=== PATIENT | male | born 1980 | race Caucasian/White ===

== ENCOUNTER 2025-05-14 08:29 | Emergency (ER) | payer OTHER, BC, SELFPAY ==
--- NOTE | ~2025-05-14 | XR_ITS ---
CLINICAL HISTORY: work injury 3 views right hand Comparison: None Findings: Comminuted fracture tuft 3rd distal phalanx extending into the shaft as well. No periostitis or bony destruction. Joint intervals are preserved. 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 Ulnar styloid perserved. Normal bone mineralization and soft tissues. Carpal bones unremarkable.. No radiopaque foreign body. Impression: 1. Comminuted fracture predominantly involving the tuft 3rd distal phalanx extending into the shaft with 2 mm diastasis. Associated soft tissue swelling This document has been electronically signed by: Shalom Wells MD on 05/14/2025 09:12:56
[2025-05-14 08:32] VITALS: BP 138/77; PULSE 77; RESP 17; TEMP 36.3; O2SAT 95; BMI 28.4
--- NOTE | 2025-05-14 08:40 | ED.EXTPRO ---
HPI - Extremity Problem General Chief complaint: Extremity Injury, Upper Stated complaint: inj m finger at work Time Seen by Provider: 05/14/25 08:40 Source: patient, RN notes reviewed and old records reviewed Mode of arrival: ambulatory Limitations: no limitations History of Present Illness ED Provider: Dequan CRUMP Narrative: Patient is a 45-year-old right-hand dominant male presenting to the emergency department with complaint of right middle finger injury sustained at work. He states that prior to arrival he was lifting a manhole cover with a co-worker when a bar slipped, causing the manhole cover to land on the distal tip of his right middle finger. He complains of pain but denies any numbness, tingling. Denies any other injuries. Unsure last Tdap. Related Data Previous Rx's ?Medication ?Instructions ?Recorded amoxicillin 875 mg-potassium 1 tab PO BID #14 tabs 05/14/25 clavulanate 125 mg tablet oxycodone 5 mg tablet 5 mg PO Q8H PRN severe pain (scale 05/14/25 score 7-10) #6 tabs Allergies Allergy/AdvReac Type Severity Reaction Status Date / Time morphine (MORPHINE) Allergy Severe VOMITING Verified 05/14/25 08:33 grape flavor (GRAPE FLAVOR) Allergy Intermediate MIGRAINES Verified 05/14/25 08:33 Review of Systems Review of Systems: As per HPI Yes all other systems are reviewed and are negative Constitutional: Constitutional: Reports as per HPI [facility] Social History Social History Smoked in Last 30 Days: No Use of substances other than those prescribed or required for medical reasons: No Advance Directives: No Advance Directives Information Provided: No Do you have a plan to hurt others: No Plan Physical Exam Vital Signs: Vital Signs: Last Vital Signs Temp 97.3 F 05/14/25 08:32 Pulse 77 05/14/25 08:32 Resp 17 05/14/25 08:32 BP 138/77 05/14/25 08:32 Pulse Ox 95 05/14/25 08:32 O2 Del Method Room Air 05/14/25 08:32 BMI result Body Mass Index 28.4 Vital signs have been reviewed and appear to be correct. Blood pressure normal. Heart rate normal. Respiratory rate normal. Temperature normal. Oxygen saturation normal. Const: General: cooperative, healthy appearing and no acute distress Orientation/consciousness: oriented to person, oriented to place, oriented to time and patient oriented x3 Limitations: no limitations HEENT: Head: Yes normocephalic and Yes atraumatic Ears: external ears normal General nose exam: Normal external nose present Face and sinus: Yes face symmetric Mouth: oropharynx normal and moist mucous membranes Throat: Yes uvula midline Eyes: Pupils: Equal, round and reactive pupils present Neck: Neck: Yes normal visual inspection and Yes supple Resp: Effort & Inspection: normal respiratory effort and able to speak in complete sentences Auscultation: clear to auscultation bilaterally Cardio: Rate: regular rate Rhythm: regular rhythm Heart sounds: S1 normal heart sound present and S2 normal heart sound present GI: Palpation (GI): Soft to palpation and nontender Auscultation: normoactive bowel sounds : General: Yes no CVA tenderness Back/Spine/Pelvis: Back: no CVA tenderness Skin: General skin exam: elasticity normal and turgor normal Neuro: General: oriented to person, oriented to place, oriented to time, patient oriented x3, moves all extremities, no focal motor deficits and CN's II-XI intact bilaterally Cranial nerves: Yes Equal, round and reactive pupils present Cognition (Neuro): normal cognition Extrem: General: Yes full ROM, Yes no pedal edema and Yes no calf tenderness Right upper extremity: Extremity exam: right hand Details: vascular exam Details: radial pulse present and normal capillary refill, abnormal ROM of finger Details: pain with active ROM Location: of the 3rd digit and unable to flex Location: of the 3rd digit (at DIP ), swelling Location: of the 3rd digit (DIP joint and distal) Location: at the distal phalanx, at the nailbed (with subungual hematoma to proximal 50% of nailbed) and at the DIP joint and ecchymosis Location: of the 3rd digit Location: at the distal phalanx Psych: Mental Status: mental status grossly normal Affect: normal affect Thought process: Normal thought process present Medical Decision Making Medical Decision Making MDM Narrative: Patient is a 45-year-old right-hand dominant male presenting to the emergency department with complaint of right middle finger injury sustained at work. On exam patient is awake, A+Ox3, VS WNL, afebrile, normal neurological exam without focal deficits, physical exam findings as above. Given reported symptoms and physical exam findings, initial differential includes but is not limited to subungual hematoma, fracture, open fracture. X-ray notable for distal phalanx fracture of right 3rd finger. My interpretation is in agreement with the radiologist's interpretation. Case discussed with ky Walls who advises against draining subungual hematoma, recommends splint and treatment with Augmentin, outpatient ortho follow-up. Dressing applied to distal fingertip, then finger splint. Tdap updated in the emergency department. Will discharge patient on Augmentin and a few oxycodone for severe pain, advised that he elevate his finger while at rest, alternate Tylenol and ibuprofen, apply ice intermittently. Advised to follow up with his employer occupational health and advised he can follow-up at [facility] if none available. Refer to orthopedics for further outpatient evaluation and management. Return precautions discussed at bedside. Patient verbalized understanding of and agreement with plan. Differential Diagnosis Differential Diagnoses: The differential diagnosis associated with the presentation includes As per [facility] Admission/Observation Consideration of admission/observation: Escalation of care including admission/observation considered Patient would have been admitted to the hospital had their clinical presentation warranted hospital admission. Independent Interpretation I performed an independent interpretation of an: Plain X-Ray Interpretation: Distal phalanx fracture right 3rd finger on x-ray. Radiology Impression Discussion of test interpretation with radiology: I have reviewed the radiologist's reading. Radiologist Impression: Impression: 1. Comminuted fracture predominantly involving the tuft 3rd distal phalanx extending into the shaft with 2 mm diastasis. Associated soft tissue swelling External Record Review External record reviewed: Inpatient record, Office record and Outpatient record Prescription Management I considered prescription management with: Pain Medication and Antibiotic Discharge Plan Discharge Clinical Impression: Fracture of distal phalanx of finger of right hand Subungual hematoma of digit of hand Qualifiers: Encounter type: initial encounter Qualified Code(s): S60.10XA - Contusion of unspecified finger with damage to nail, initial encounter Patient Disposition: Home, Self-Care Instructions: Subungual Hematoma (ED), Finger Fracture (ED), Splint Care (ED) Additional Instructions: You have been evaluated in the emergency department today for right middle finger injury. Your evaluation showed a fracture of your right middle finger tip. We have placed your finger in a splint today, avoid getting the splint wet. Please rest, ice, and elevate your finger to help it heal. You are being treated with a course of antibiotics to prevent infection, complete the full course as prescribed. Do not submerge your finger in water, especially outdoor water such as ponds, lakes, streams, etc. Change the dressing daily and assess the finger for signs of infection such as redness, swelling, thick yellow drainage or redness streaking up your arm. Use Tylenol or ibuprofen per package directions every 6 hours as needed for pain. If necessary, you can alternate these medications and take one medication every 3 hours. For instance, at noon take ibuprofen, then at 3:00 p.m. take Tylenol, then at 6:00 p.m. take ibuprofen. You are being prescribed a few oxycodone for severe pain. Do not drink alcohol while taking this medication as this can cause excessive drowsiness. Please follow-up with the orthopedic office within 1 week. Return to the emergency department if you experience worsening pain, numbness, tingling, change of color in your finger, or any other concerning symptoms. Follow up with occupational health through your employer, or you can also follow up with [facility] for clearance to return to work. [facility] [address] [place] [address] Prescriptions: New amoxicillin-pot clavulanate 875-125 mg tablet 1 tab PO BID Qty: 14 0RF oxycodone 5 mg tablet 5 mg PO Q8H PRN (Reason: severe pain (scale score 7-10)) Qty: 6 0RF Rx Instructions: Partial Fill upon patient request. Referrals: [facility] [Provider Group] Referral Note: Work related injury Clinical Impression: Fracture of distal phalanx of finger of right hand Stand Alone Forms: Work/School Release Print Language: South African
[2025-05-14] MEDS: Diphth,Pertus(ACell),Tet Adult 0.5 ML SYRINGE IM (09:20)
[2025-05-14 09:31] VITALS: BP 138/77; PULSE 77; RESP 17; TEMP 36.3; O2SAT 95
== END 2025-05-14 09:32 | disposition home or self-care (01) ==
PROVIDERS: Emergency Provider Emergency Medicine Emergency Medical Services; PCP Nurse Practitioner
DX: S62.632A Displaced fracture of distal phalanx of right middle finger, initial encounter for closed fracture (principal); S60.221A Contusion of right hand, initial encounter; S60.511A Abrasion of right hand, initial encounter; M79.641 Pain in right hand; Y29.XXXA Contact with blunt object, undetermined intent, initial encounter; Y93.H3 Activity, building and construction; Y92.410 Unspecified street and highway as the place of occurrence of the external cause; Y99.0 Civilian activity done for income or pay; Z23 Encounter for immunization
CPT/HCPCS: 29130; 73130; 90471; 90715; 99284

== ENCOUNTER → 2025-05-14 08:45 | Outpatient (BNV) | payer OTHER, SELFPAY | PROVIDERS: Emergency Provider Emergency Medicine Emergency Medical Services; PCP Nurse Practitioner; Visit Provider Radiology Diagnostic Radiology | DX: S62.634A Displaced fracture of distal phalanx of right ring finger, initial encounter for closed fracture (principal) | CPT/HCPCS: 73130 ==

== ENCOUNTER 2025-05-17 10:38 | Outpatient (AMB) | payer OTHER, SELFPAY ==
--- NOTE | 2025-05-17 11:15 | MHC.OFFVIS ---
Vital Signs 05/17/25 11:16 Height 5 ft 9 in Weight 192 lb BMI 28.4 Intake Visit Reasons: ED/FC-distal phalanx FC of RT 3rd finger-DOI 05/14 Intake Note: Patsy 45 yr old right hand dominant male presents today for a fracture care visit for his W/C injury to his right middle finger injury DOI 05/14/25. As per ED notes patient states that prior to arrival he was lifting a manhole cover with a co-worker when a bar slipped, causing the manhole cover to land on the distal tip of his right middle finger. Xrays were taken and a fracture was confirmed. Patient's finger was splinted and referred to orthopedic. Currently states he has pain 7/10 on pain scale, limited ROM, swelling and bruising. He also has throbbing at tip of finger. 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 On 05/14/2025 while at work he was removing a man hole cover when it fell smashing the tip of his right middle finger. He was seen in our emergency department where radiographs were taken, he was evaluated, placed on oral antibiotics and sent to us for our evaluation and care. He complains of pain and swelling in the tip of his right middle finger that is still causing him problems with sleeping. 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 Physical Exam Vital Signs: BMI result Body Mass Index 28.4 Const General: cooperative, healthy appearing and no acute distress Orientation/consciousness: oriented to person and oriented to place HEENT Head: Yes normocephalic and Yes atraumatic Eyes EOM: EOMs intact bilaterally Resp Effort & Inspection: normal respiratory effort and able to speak in complete sentences Cardio Jugular venous distension: no JVD Skin General skin exam: turgor normal Rashes: no rashes Neuro General: oriented to person and oriented to place Extrem Other: Evaluation of right Upper Extremity: He has significant swelling and ecchymosis of the right middle finger extending up to the middle of the middle phalanx from the tip of the finger. The distal phalanx area is tender to palpation The nail is still in place with a subungual hematoma and also a small amount of blood coming out from under the eponychial fold. No purulence or evidence of infection. With encouragement he can bring all fingers close to a fist and back into full extension. Decreased sensation to the tip of the middle finger Radiographs: Three views of the patient's right hand were reviewed from 05/14/2025 and again today. He has a comminuted fracture of the distal phalanx that appears to involve both the tuft and the shaft. There is increased displacement seen on the lateral view Psych Appearance: grossly normal Affect: normal affect Attitude: cooperative Assessment & Plan Assessment & Plan (1) Open displaced fracture of distal phalanx of right middle finger: Code(s): S62.632B - Displaced fracture of distal phalanx of right middle finger, initial encounter for open fracture Category: Medical Plan Assessment and plan: 1. 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 We discussed operative and non operative treatment options. I discussed the importance of finishing all of his antibiotics. Given the increased displacement, I am recommending operative treatment The risks and benefits of operative treatment were discussed with the patient and the patient wishes to proceed with surgery. These risks include, but are not limited to risk of damage to blood vessels, nerves, tendons, infection, recurrence, incomplete relief of preoperative symptoms, persistent pain, possible need for further surgery and the risks associated with regional blocks and anesthesia. The plan is to take the patient to the operating room this week for the following procedures: 1. Right middle finger distal phalanx fracture closed versus open reduction internal fixation under general 2. [ ] All of the preoperative paperwork including the consent was filled out today. All the patient's questions were answered. The patient understands that they will be contacted by our accountant cost soon to schedule this procedure I am going to keep him off of work for the next 4 weeks. I explained to him that I think it is very unlikely that he would be able to participate as a player in the upcoming softball tournament later this month. He might be ready to play softball again perhaps in mid to late June. Orders: Orders XR hand RT min 3V Today M79.641 - Pain in right hand Coding Level of Care Code New Pt Level 4 (88070) Diagnoses Open displaced fracture of distal phalanx of right middle finger S62.637L
[2025-05-17 11:16] VITALS: BMI 28.4
--- OUTSIDE RECORDS SUMMARY | 2025-05-17 11:20 | XMS_ITS | Clinical Summary ---
Author Organization [facility] Address [address] [facility] [address] [place] [phone] Phone Care Team Providers Care Shaping Machine Tender Name Role Phone Linda Byrne SENIOR CORPORATE STRATEGY MANAGER Primary Care Provider [phone] Allergies Active Allergy Reactions Criticality Noted Date Comments Gluten Protein 07/01/2019 Morphine GI Upset 05/20/2018 Medications dextroamphetami ne-amphetamine (ADDERALL XR) 30 MG 24 hr capsule TAKE ONE (1) CAPSULE BY MOUTH EVERY MORNING AND ONE (1) CAPSULE EVERY AFTERNOON 2 Active methocarbamoL (ROBAXIN) 500 MG tablet Take 1 tablet (500 mg total) by mouth 3 (three) times a day as needed (neck pain). 21 tablet 2 Active Active Problems No known active problems Social History Tobacco Use Types Packs/Day Years Used Date Smoking Tobacco: Never Smokeless Tobacco: Never Alcohol Use Standard Drinks/Week Comments No 0 (1 standard drink = 0.6 oz pur e alcohol) Education Answer Date Recorded Are you interested in more education? Not on muna e 02/07/2023 Are you concerned about learning? Not on file 02/07/2023 No 02/07/2023 No 02/07/2023 Digital Access Answer Date Recorded No 03/08/2023 No 03/08/2023 No 03/08/2023 Reliable internet access at home? Not on file 03/08/2023 Device with a working camera? Not on file Sex and Gender Information Value Date Recorded Sex Assigned at Male 05/20/2018 4:08 PM EDT Legal Sex Male 3:49 PM EDT Gender Identity Male 05/20/2018 4:08 PM EDT Sexual Orientation Straight 05/20/2018 4: 08 PM EDT Last Filed Vital Signs Vital Sign Reading Time Taken Comments Blood Pressure 120/78 07/11/2022 11:38 AM EDT Pulse 79 07/11/2022 11:38 AM EDT Temperature 36.8 C (98.3 F) 07/11/2022 11:38 AM EDT Respiratory Rate 18 07/11/2022 11:38 AM EDT Oxygen Saturation 99% 07/11/2022 11:38 AM EDT Inhaled Oxygen Concentration - - Weight 81.6 kg (180 lb) 07/11/2022 11:38 AM EDT Height 175.3 cm (5' 9 ) 05/04/2020 10:28 AM EDT Body Mass Index 26.58 05/04/2020 10:28 AM EDT Plan of Treatment Health Maintenance Due Date Last Done Comments LIPID PANEL 1982 DEPRESSION SCREENING 1994 HEPATITIS C SCREENING 2000 HIV ONE-TIME SCREENING (18-6 5 YEARS) 2000 SCREENING FOR DIABETES 2017 COVID-19 VACCINE (2 - 2023-2 5 season) 2024 02/04/2021 Adult Td,Tdap Booster 07/04/2027 07/04/2017 , 10/13/2006 SMOKING STATUS SCREENING (On ce After 26 Yrs) Completed 07/11/2022 HEPATITIS A VACCINES Aged Out No long er eligible based on patient's age to complete this topic HIB VACCINES Aged Out No longer eligi ble based on patient's age to complete this topic MENINGOCOCCAL VACCINES (ACWY) Aged Out No longer eligible based on patient's age to complete this topic MENINGOCOCCAL VACCINES (B) Aged Out N o longer eligible based on patient's age to complete this topic PNEUMOCOCCAL VACCINES (0-49 years) Aged Out No longer eligible b ased on patient's age to complete this topic Medical Devices Not on file [place] [address] [address] PPO EPO [facility] PPO EPO [facility] PPO EPO BLUE [facility] PPO [facility]PO [facility] PPO EPO [facility] PPO EPO hybris [facility] PPO EPO [place] [address] [place] [address] PPO EPO [employer] [facility] Care Teams Shaping Machine Tender Relationship Specialty Start Date End Date Linda Byrne NP [address] [place] [address] PCP - General Family Medicine 07/08/22 Additional Source Comments The information contained in this document represents components of the legal health record. It is not the complete legal health record.[facility]
== END 2025-05-17 12:27 | disposition home or self-care (01) ==
LOC: HO.HOS 10:39
PROVIDERS: PCP Nurse Practitioner; Visit Provider Orthopaedic Surgery
DX: S62.632B Displaced fracture of distal phalanx of right middle finger, initial encounter for open fracture (principal)
CPT/HCPCS: 99204

== ENCOUNTER 2025-05-17 10:38 | Outpatient (REF) | payer OTHER, BC, SELFPAY ==
--- NOTE | ~2025-05-17 | XR_ITS ---
EXAMINATION: XR HAND 3 OR MORE VIEWS RIGHT HISTORY: M79.641 - Pain in right hand COMPARISON: Comparison is made with the prior examination dated 05/14/2025. FINDINGS: Three views of the right hand are submitted. Osseous mineralization is normal. Again seen is a comminuted displaced fracture of the distal tuft of the middle finger. The fracture lines remain visible. The joint spaces are preserved. The soft tissues are unremarkable. XR/XR hand RT min 3V IMPRESSION: Comminuted displaced fracture of the distal tuft of the middle finger without change. Electronically signed by: Rufus Rodgers MD 05/17/2025 12:15 PM EDT
== END 2025-05-17 10:39 | disposition home or self-care (01) ==
LOC: HO.HOSX 10:38
PROVIDERS: PCP Nurse Practitioner; Visit Provider Orthopaedic Surgery
DX: S62.632B Displaced fracture of distal phalanx of right middle finger, initial encounter for open fracture (principal); M79.641 Pain in right hand; W20.8XXA Other cause of strike by thrown, projected or falling object, initial encounter; Y93.89 Activity, other specified; Y92.89 Other specified places as the place of occurrence of the external cause; Y99.0 Civilian activity done for income or pay
CPT/HCPCS: 73130; 99202

== ENCOUNTER → 2025-05-17 11:51 | Outpatient (BNV) | payer OTHER, SELFPAY | PROVIDERS: PCP Nurse Practitioner; Visit Provider Radiology Diagnostic Radiology | DX: M79.641 Pain in right hand (principal); S62.632A Displaced fracture of distal phalanx of right middle finger, initial encounter for closed fracture | CPT/HCPCS: 73130 ==

== ENCOUNTER 2025-05-19 07:21 | Day surgery (SDC) | payer OTHER, BC, SELFPAY ==
--- NOTE | 2025-05-18 10:09 | HO.ANESPROP2 ---
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 Allergies Allergy/AdvReac Type Severity Reaction Status Date / Time morphine (MORPHINE) Allergy Severe VOMITING Verified 05/17/25 11:20 grape flavor (GRAPE FLAVOR) Allergy Intermediate MIGRAINES Verified 05/17/25 11:20 Assessment and Plan Assessment Anesthesia Assessment: Chart Reviewed Documented by User: Bj Boothe MD 05/19/25 07:55 PMFSH Past Medical History Medical History ADHD Anxiety Celiac disease Hx of fracture of nose Functional capacity: independent ambulation Family History Family history of problems with anesthesia: No Surgical History Surgical History H/O shoulder surgery History of nasal surgery History of Problems with Anesthesia: No Social History Social History Advance Directives: No Advance Directives Information Provided: Yes Current occupational status: employed 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 Allergies Allergy/AdvReac Type Severity Reaction Status Date / Time morphine (MORPHINE) Allergy Severe VOMITING Verified 05/17/25 11:20 grape flavor (GRAPE FLAVOR) Allergy Intermediate MIGRAINES Verified 05/17/25 11:20 Exam Exam Date and Time: 05/19/2025 Airway Mallampati Class: II TM Dist: >3cm Neck ROM: Full Loose/Missing/Broken Teeth: No (normal dentition) Heart: rrr Lungs: cta Other: normal Assessment and Plan Assessment Anesthesia Assessment: Anesthesia Plan Discussed Final Anesthetic Review Family History of Problems with Anesthesia: No History of Problems with Anesthesia: No NPO: Yes ASA Class: II Final Preanesthetic Review: No Changes in Pt Med Stat, Meds/Allgs Chart Reviewed, Consent Obtained/Reviewed and Anes Risks/Benef Reviewed Patient Risk: Low Procedure Risk: Low Anesthetic Plan Anesthetic Plan: GA Disposition: Standard PACU
--- NOTE | ~2025-05-19 | FL_ITS ---
EXAMINATION: XR FLUOROSCOPY WITH IMAGES CLINICAL INFORMATION: K wire fixation of distal phalanx fracture of the third digit. COMPARISON: Right hand radiographs 05/17/2025. TECHNIQUE: Fluoroscopy provided to: Dr. Sapna Low Fluoroscopy time: 51.56 seconds DAP: 0.0565 Gycm2 Images: 12 FINDINGS: 12 spot images taken during K wire fixation/ORIF of a distal phalanx fracture of the third digit. Refer to the full operative report for details. FL/FL guidance in OR IMPRESSION: Fluoroscopic guidance. Electronically signed by: Osmar Valadez MD 05/19/2025 09:41 AM EDT
[2025-05-19 07:51] VITALS: BMI 28.3
--- NOTE | 2025-05-19 07:54 | MHC.SHP ---
Pre-Procedural Eval Section A - 24 Hr Update-Section A only Date of Service: 05/19/25 The patient is an INPATIENT: No Changes since office visit: No Cold of Flu in the past 2 weeks, No New Medical Problems, No Changes in Medication and No Patient answered all questions The patient has been examined within 24 hours of the surgical procedure. The History & Physical has been completed within 30 days and I have reviewed it.: Yes Section B - Complete if H&P > 30 days Chief Complaint: Displaced fracture of distal phalanx of right midd Allergies: Allergies Allergy/AdvReac Type Severity Reaction Status Date / Time morphine (MORPHINE) Allergy Severe VOMITING Verified 05/17/25 11:20 grape flavor (GRAPE FLAVOR) Allergy Intermediate MIGRAINES Verified 05/17/25 11:20 Plan I have reviewed the history and physical and performed a pertinent physical examination on my patient. No changes have occurred unless specified. Time Spent With Patient Time: Total time managing care of this patient today ____ minutes.
--- NOTE | 2025-05-19 07:55 | W.PM.OPN ---
Operative Note Operative Note Date of Service: 05/19/25 Narrative: Operative Note Narrative: Preop diagnosis: 1. Right middle finger open distal phalanx fracture Postop diagnosis: Same Procedure: 1. Right middle finger closed reduction percutaneous pinning Surgeon: Sapna Low MD Medical Charge Entry Specialist: Titi GROSS Anesthesia: General Anesthesia Findings: finger fracture Implants: 0.045 K-wires times 1, and 0.035 K-wire x1 Tourniquet time: None EBL: Minimal Specimen: None Drains: None Complications: None Disposition: Brought to the recovery room in stable condition Plan: Continue Augmentin for another week. Follow-up in 10-14 days for a wound check, postop radiographs and for placement in a short-arm finger spica cast, or possibly insight care and a finger splint Anticipate K-wire removal in 4 weeks based on interval bony healing Educate the patient that full fracture healing anticipated in approximately 8-12 weeks. Indications: The patient is 45 years old with a right middle finger open distal phalanx fracture from getting it caught in a manhole cover . The risks and benefits of operative treatment, including but not limited to risk of damage to blood vessels, nerves, tendons, infection, recurrence, delayed or nonunion of fracture, persistent pain or numbness, incomplete resolution of preoperative symptoms, or need for further surgery were discussed with the patient and they wished to proceed with surgery. Procedure: Once consent was obtained patient was brought back to the operating suite and placed in the operating table in a supine position. . Perioperative antibiotics and general anesthesia was administered by the anesthesia team. A tourniquet was applied to the proximal aspect of the right upper extremity and the limb was prepped and draped in a standard surgical fashion. Tourniquet was not inflated during the case. The FluoroScan was used during the case to assist with our fracture reduction and placement of all implants. A digital block was performed on the right middle finger using a combination of 1% lidocaine with epinephrine. A closed reduction was performed on the patient's right middle finger distal phalanx fracture. I placed a single 0.045 K-wire retrograde through the tip of the right middle finger distal phalanx. This was advanced across the fracture site to the base of the distal phalanx and then advanced across the D IP joint and down to the base of the middle phalanx. Once satisfied with our reduction and placement of the 1st K-wire I placed a 2nd K-wire, 0.035 again retrograde and parallel to the 0.045 K-wire. This was advanced across the fracture site and then across the D IP joint into the distal aspect of the middle phalanx. Fracture alignment was assessed for both angular and rotational malalignment. Once satisfied with our fracture reduction and implant placement, the K-wires were bent and cut short and pin caps applied. Final fluoroscopic images were then obtained. There was a small amount of fluid coming out from beneath the eponychial fold. The patient had had a subungual hematoma and some of the prep fluid got beneath it. There was no purulence or evidence of infection. To be safe we are going to keep him on Augmentin for another week. The wounds were copiously irrigated with normal saline. A Sterile dressing and short volar splint extending from the fingertips of the middle ring and small fingers to the forearm was applied. The patient appears to have tolerated the procedure well and with no complications. The middle finger was still pale secondary to the lidocaine with epinephrine. We will advise the patient to be assure that he regains sensation by the end of the day or to return to the ER.
[2025-05-19 07:59] VITALS: BP 119/72; PULSE 64; RESP 16; TEMP 36.3; O2SAT 99
[2025-05-19] MEDS: Lactated Ringers 1,000 ML 100 ML IVCONT (08:00)
[2025-05-19 09:25] VITALS: BP 118/70; PULSE 75; RESP 18; TEMP 36.5; O2SAT 99
[2025-05-19 09:30] VITALS: BP 125/73; PULSE 65; RESP 13; O2SAT 97
[2025-05-19 09:35] VITALS: BP 123/73; PULSE 73; RESP 14; O2SAT 97
[2025-05-19 09:40] VITALS: BP 129/83; PULSE 65; RESP 12; O2SAT 97
[2025-05-19] MEDS: oxyCODONE HCl Immed Release 5 MG TABLET PO (09:54)
[2025-05-19 09:55] VITALS: BP 120/78; PULSE 63; RESP 13; TEMP 36.4; O2SAT 98
== END 2025-05-19 10:18 | disposition home or self-care (01) ==
PROVIDERS: PCP Nurse Practitioner; Visit Provider Orthopaedic Surgery
PROC: (CPT 26756; principal; 2025-05-19 08:00)
DX: S62.632A Displaced fracture of distal phalanx of right middle finger, initial encounter for closed fracture (principal); S60.031A Contusion of right middle finger without damage to nail, initial encounter; W23.1XXA Caught, crushed, jammed, or pinched between stationary objects, initial encounter; Y93.89 Activity, other specified; Y92.410 Unspecified street and highway as the place of occurrence of the external cause; Y99.0 Civilian activity done for income or pay; F41.9 Anxiety disorder, unspecified; F90.9 Attention-deficit hyperactivity disorder, unspecified type; K90.0 Celiac disease; K86.81 Exocrine pancreatic insufficiency; Z87.81 Personal history of (healed) traumatic fracture; Z88.5 Allergy status to narcotic agent; Z98.890 Other specified postprocedural states
CPT/HCPCS: 26756; J0131; J0690; J1100; J2003; J2004; J2250; J2405; J2704; J3010

== ENCOUNTER → 2025-05-19 07:21 | Outpatient (BNV) | payer OTHER, SELFPAY | PROVIDERS: PCP Nurse Practitioner; Visit Provider Orthopaedic Surgery | DX: S62.632A Displaced fracture of distal phalanx of right middle finger, initial encounter for closed fracture (principal) | CPT/HCPCS: 26756 ==

== ENCOUNTER 2025-05-20 13:53 | Outpatient (AMB) | payer OTHER, SELFPAY ==
--- OUTSIDE RECORDS SUMMARY | 2025-05-20 13:56 | XMS_ITS | Clinical Summary ---
Author Organization [facility] Address [address] [facility] [address] [place] [address] Phone Care Team Providers Care Astrobiologist Name Role Phone Linda Byrne PRODUCT OPERATIONS ASSOCIATE Primary Care Provider [phone] Allergies Active Allergy Reactions Criticality Noted Date [...] topic Medical Devices Not on [place] [address] [place] [address] PPO EPO [facility] PPO EPO [facility] PPO EPO BLUE [facility] PPO EPO [facility] PPO [facility]PO [facility] PPO EPO [employer] [facility] PPO EPO [place] [address] [place] [address] PPO EPO [employer] [facility] Care Teams Astrobiologist Relationship Specialty Start Date End Date Linda Byrne NP [address] [place] [address] PCP - General Family Medicine 07/08/22 Additional Source Comments The information contained in this document represents components of the legal health record. It is not the complete legal health record.[facility]
--- NOTE | 2025-05-20 14:07 | MHC.OFFVIS ---
Intake Visit Reasons: PO: right middle finger CRPP 05/19/25 AR Intake Note: Patsy 45 year old right hand dominant male presents today for a post operative visit status post right middle finger CRPP DOS: 05/19/[address] Sapna Low. Patient report he has been having extreme pain in the right 3rd digit of right hand. He is here today to get his splint redone. Allergies morphine (MORPHINE) Allergy (Severe, Verified 05/20/25 14:09) VOMITING grape flavor (GRAPE FLAVOR) Allergy (Intermediate, Verified 05/20/25 14:09) MIGRAINES HPI HPI PO: right middle finger CRPP 05/19/25 AR : Details: Patsy 45 year old right hand dominant male presents today for a post operative visit status post right middle finger CRPP DOS: 05/19/[address] Sapna Low. Patient report he has been having extreme pain in the right 3rd digit of right hand. He is here today to get his splint redone. Patient inquires if he can have a splint that allows movement of his wrist, as his splint is currently making it difficult for him to work and play video games. No other acute complaints or concerns at this time. 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 Review of Systems Const All systems reviewed & are unremarkable except as noted in HPI and below Physical Exam Const General: cooperative, healthy appearing and no acute distress Orientation/consciousness: oriented to person and oriented to place HEENT Head: Yes normocephalic and Yes atraumatic Eyes EOM: EOMs intact bilaterally Resp Effort & Inspection: normal respiratory effort and able to speak in complete sentences Cardio Jugular venous distension: no JVD Skin General skin exam: turgor normal Rashes: no rashes Neuro General: oriented to person and oriented to place Extrem Other: Evaluation of right Upper Extremity: He has improved swelling and ecchymosis of the right middle finger extending up to the middle of the middle phalanx from the tip of the finger. The distal phalanx area is minimally tender to palpation Pin site clean, dry, intact, no evidence of infection The nail is still in place with a subungual hematoma and also a small amount of blood coming out from under the eponychial fold. No purulence or evidence of infection. With encouragement he can bring all fingers close to a fist and back into full extension. Decreased sensation to the tip of the middle finger Psych Appearance: grossly normal Affect: normal affect Attitude: cooperative Office Procedures Casting/Splints 39371-Cltqawt Splint Application Procedure code (CPT) selection complete Assessment & Plan Assessment & Plan (1) Open displaced fracture of distal phalanx of right middle finger: Onset Date: ~05/14/25 Code(s): S62.632B - Displaced fracture of distal phalanx of right middle finger, initial encounter for open fracture Category: Medical Plan 1. Status post CRPP of distal phalanx of right middle finger Patient is educated about this condition Patient is educated about the typical treatment course At this time, patient is informed that unfortunately, there are no splints that we can give him that we will allow freedom of movement of his palm and wrist Patient is replaced into a 3 finger ulnar gutter splint at this time Patient is educated on proper splint care and precautions Follow-up for previously scheduled postoperative appointment, sooner with any acute concerns Coding Level of Care Code Global (21997) Diagnoses Open displaced fracture of distal phalanx of right middle finger S62.632B CPT Codes Splint - CPT: 58736-Mtzohuq Splint Application ([id number])
== END 2025-05-20 14:53 | disposition home or self-care (01) ==
PROVIDERS: PCP Nurse Practitioner
DX: S62.632B Displaced fracture of distal phalanx of right middle finger, initial encounter for open fracture (principal)
CPT/HCPCS: 29125; 99024

== ENCOUNTER → 2025-05-20 13:53 | Outpatient (BNVA) | payer OTHER, BC, SELFPAY | PROVIDERS: PCP Nurse Practitioner | DX: M79.644 Pain in right finger(s) (principal); S62.632B Displaced fracture of distal phalanx of right middle finger, initial encounter for open fracture | CPT/HCPCS: 29125; 99212 ==

== ENCOUNTER 2025-06-01 08:26 | Outpatient (REF) | payer OTHER, BC, SELFPAY ==
--- NOTE | ~2025-06-01 | XR_ITS ---
EXAMINATION: XR HAND, RIGHT CLINICAL INFORMATION: M79.641 - Pain in right hand COMPARISON: May 17, 2025. TECHNIQUE: PA, lateral, and oblique views of the right hand. FINDINGS: There are 2 K wires through the distal and middle phalanges of the third digit with persistent malalignment fracture distal phalanx. There is foreshortening of the fifth metacarpal with a volar angulation. XR/XR hand RT min 3V IMPRESSION: Status post internal fixation of a comminuted displaced fracture distal phalanx, third digit. Old traumatic deformity, fifth metacarpal. Electronically signed by: Fabrizio Bentley MD 06/01/2025 01:37 PM EDT
--- OUTSIDE RECORDS SUMMARY | 2025-06-02 09:20 | XMS_ITS | Clinical Summary ---
Author Organization [facility] Address [address] [facility] [address] [place] [address] Phone Care Team Providers Care Dredge Boat Engineer Name Role Phone Linda Byrne DIRECTOR ORACLE [employer]AIL Primary Care Provider [phone] [phone] Allergies Active Allergy Reactions Criticality Noted Date [...] topic Medical Devices Not on file Insurance [address] [address] PPO EPO [facility] PPO EPO [facility] PPO EPO BLUE [facility] PPO EPO [facility] PPO EPO [facility] PPO EPO [employer] [facility] PPO EPO PPO [place] [address] [address] PPO EPO [employer] [facility] Care Teams Dredge Boat Engineer Relationship Specialty Start Date End Date Linda Byrne NP [address] [place] [address] PCP - General Family Medicine 07/08/22 Additional Source Comments The information contained in this document represents components of the legal health record. It is not the complete legal health record.[facility]
== END 2025-06-01 08:27 | disposition home or self-care (01) ==
LOC: HO.HOSX 08:26
PROVIDERS: Visit Provider Orthopaedic Surgery
DX: Z47.1 Aftercare following joint replacement surgery (principal); S62.632B Displaced fracture of distal phalanx of right middle finger, initial encounter for open fracture; W22.8XXD Striking against or struck by other objects, subsequent encounter
CPT/HCPCS: 73130; 99212

== ENCOUNTER 2025-06-01 12:51 | Outpatient (AMB) | payer OTHER, SELFPAY ==
--- NOTE | 2025-06-01 13:02 | MHC.OFFVIS ---
Vital Signs 06/01/25 13:19 Height 5 ft 9 in Weight 185 lb BMI 27.3 Intake Visit Reasons: PO RT MF CRPP v ORIF 05/19/25 AR Intake Note: Patsy 45 yr old right hand dominant male presents today for his W/C related injury post op visit for his right middle finger CRPP 05/19/[address] Low. Dressing removed in office and xrays updated. States he has a bruise feeling on his finger. 3/10 on pain scale. 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 He returns S/P right middle finger CRPP, DOS: 05/19/25. On 05/14/2025 while at work he was removing a man hole cover when it fell smashing the tip of his right middle finger. This is a work-related injury. He was seen on 05/20/25 with complaints of pain and wanting a less restrictive splint to allow for more wrist & palm ROM. He was fitted for an ulnar gutter splint at that appointment. He complains of some pain & bruising to his finger, but this is improved from prior. He has been playing video games at home, which he finds difficult due to his post-op splint restricting his motion. 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 Sutures removed and Steri-Strips applied Slight pronation of his middle finger, similar to his contralateral side Mild stiffness in his PIP joint Fracture site minimally tender Sensation is intact Cap refill is brisk Radiographs: 3 views of the right hand were taken and viewed by me today in clinic. They show a middle finger distal phalanx fracture with some increased flexion of the proximal aspect of the distal phalanx, but satisfactory position of all implants. Psych Appearance: grossly normal Affect: normal affect Attitude: cooperative Assessment & Plan Assessment & Plan (1) Open displaced fracture of distal phalanx of right middle finger: Onset Date: ~05/14/25 Code(s): S62.632B - Displaced fracture of distal phalanx of right middle finger, initial encounter for open fracture Category: Medical Plan Assessment & Plan: 1. Right middle finger open distal phalanx fracture, S/P CRPP DOS: 05/19/25 DOI: 05/14/25 while at work This is a workplace injury The patient appears to be doing well post-operatively I educated him about the post-operative course and reviewed his radiographs with him. He may be at risk of developing a fibrous non-union and I worry that he has been doing too much with his hand post-operatively. I explained the signs and symptoms of infection, if the patient develops any new or worsening erythema, drainage, pain, or warmth they should contact the clinic or attend the ED. 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 He was given a note to remain out of work for the next 4 weeks. He will follow up in 3 weeks with X-rays, 3V R hand, OOP. Anticipate K-wire removal depending on healing Scribed for Sapna Low MD by Rickey Torre, medical transcription editor, on 06/01/25 at 1:20 PM, EST. Orders: Orders XR hand RT min 3V Today M79.641 - Pain in right hand Coding Level of Care Code Global (32741) Diagnoses Open displaced fracture of distal phalanx of right middle finger S62.632B
[2025-06-01 13:19] VITALS: BMI 27.3
--- OUTSIDE RECORDS SUMMARY | 2025-06-01 13:42 | XMS_ITS | Clinical Summary ---
Author Organization [facility] Address [address] [facility] [address] [place] [address] Phone Care Team Providers Care Operating Room Specialist Name Role Phone Linda Byrne HUMAN RESOURCES PSYCHOLOGIST Primary Care Provider [phone] [phone] Allergies Active Allergy Reactions Criticality Noted Date [...] topic Medical Devices Not on file [place] [address] [place] [address] PPO EPO [facility] PPO EPO [facility] PPO EPO BLUE [facility] PPO EPO [facility] PPO EPO [facility] PPO EPO [employer] [facility] PPO EPO [place] [address] [place] [address] PPO EPO [email or web address] [facility] Care Teams Operating Room Specialist Relationship Specialty Start Date End Date Linda Byrne NP [address] [place] [address] PCP - General Family Medicine 07/08/22 Additional Source Comments The information contained in this document represents components of the legal health record. It is not the complete legal health record.[facility]
== END 2025-06-01 13:59 | disposition home or self-care (01) ==
LOC: HO.HOS 12:52
PROVIDERS: PCP Nurse Practitioner; Visit Provider Orthopaedic Surgery
DX: S62.632B Displaced fracture of distal phalanx of right middle finger, initial encounter for open fracture (principal)
CPT/HCPCS: 99024

== ENCOUNTER → 2025-06-01 12:59 | Outpatient (BNV) | payer OTHER, SELFPAY | PROVIDERS: Visit Provider Radiology Diagnostic Radiology | DX: S62.63 Displaced fracture of distal phalanx of finger (principal) | CPT/HCPCS: 73130 ==

== ENCOUNTER 2025-06-22 09:20 | Outpatient (AMB) | payer OTHER, SELFPAY ==
[2025-06-22 09:32] VITALS: BMI 27.3
--- NOTE | 2025-06-22 09:32 | A.OFFVIS_ITS ---
Vital Signs 06/22/25 09:32 Height 5 ft 9 in Weight 185 lb BMI 27.3 Intake Visit Reasons: PO RT MF CRPP v ORIF 05/19/25 AR with xray Intake Note: Patsy 45 yr old right hand dominant male presents today for his W/C related injury post op visit for his right middle finger CRPP 05/19/[address] Low. At his last visit he was fitted for a velcro finger spica splint, to be worn like a cast except for showering for the next 3 weeks, he was instructed to do at home pin- site cleaning, he is to lift nothing heavier than a cellphone for the next 6 weeks and he will perform gentle ROM exercises at home. 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 He was given a note to remain out of work for the next 4 weeks. Currently states he has continued to do daily dressing changes at home, he has some tenderness but is doing well over all. Xrays updated in office. 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 He returns S/P right middle finger CRPP, DOS: 05/19/25. On 05/14/2025 while at work he was removing a man hole cover when it fell smashing the tip of his right middle finger. This is a work-related injury. He says he is doing well overall, continues to have some tenderness in his finger. he has been doing daily pin-site care. 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 Smaller K-wire removed today in clinic, which he tolerated well 0.045 K-wire remains in place Slight pronation of his middle finger, similar to his contralateral side Mild stiffness in his PIP joint Fracture site minimally tender Sensation is intact Cap refill is brisk Radiographs: 3 views of the right hand were taken and viewed by me today in clinic. They show a middle finger distal phalanx fracture with satisfactory fracture alignment & satisfactory position of all implants. Still has a gap a the fracture site, perhaps slightly improved from prior Psych Appearance: grossly normal Affect: normal affect Attitude: cooperative Assessment & Plan Assessment & Plan (1) Open displaced fracture of distal phalanx of right middle finger: Onset Date: ~05/14/25 Code(s): S62.632B - Displaced fracture of distal phalanx of right middle finger, initial encounter for open fracture Category: Medical Plan Assessment & Plan: 1. Right middle finger open distal phalanx fracture, S/P CRPP DOS: 05/19/25 DOI: 05/14/25 while at work 0.035 K-wire removed: 06/22/25 This is a workplace injury The patient appears to be doing well post-operatively I educated him about the post-operative course and reviewed his radiographs with him. He may still be at risk of developing a fibrous non-union I explained the signs and symptoms of infection, if the patient develops any new or worsening erythema, drainage, pain, or warmth they should contact the clinic or attend the ED. He will discontinue his finger splint at this time. The patient has stopped wearing his splint already and feels that the soft dressing he wears at the pin site is supportive enough. He will have to wear his splint whenever he returns to work, for a few days at least. 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 He was given a note to remain out of work for the next 4 weeks. He will follow up in 4 weeks with X-rays, 3V R hand, OOP. Anticipate remaining K-wire removal Scribed for Sapna Low MD by Rickey Torre, medical scientific liaison, on 06/22/25 at 9:50 AM, EST. Orders: Orders XR hand RT min 3V Today M79.641 - Pain in right hand Coding Level of Care Code Global (54191) Diagnoses Open displaced fracture of distal phalanx of right middle finger S62.632B
--- OUTSIDE RECORDS SUMMARY | 2025-06-22 11:09 | XMS_ITS | Clinical Summary ---
Author Organization [facility] Address [address] [employer] [facility] [address] [place] [address] Phone Care Team Providers Care Warehouse Order Filler Name Role Phone Linda Byrne GOLD LEAF PRINTER Primary Care Provider [phone] Allergies Active Allergy Reactions Criticality Noted Date [...] 5 YEARS) 2000 SCREENING FOR DIABETES 2017 INFLUENZA VACCINE (#1) 2025 07/25/2019 COVID-19 VACCINE (2 2024-2 6 season) 2025 02/04/2021 Adult Td,Tdap Booster 07/04/2027 07/04/2017 , [...] topic Medical Devices Not on file Insurance [employer] [place] [place] PPO EPO [facility] PPO EPO [facility] PPO EPO [facility] PPO EPO [facility] PPO EPO [facility] PPO EPO [employer] PPO EPO [place] [address] [place] [address] PPO EPO [employer] Care Teams Warehouse Order Filler Relationship Specialty Start Date End Date Linda Byrne NP [address] [place] [address] PCP - General Family Medicine 07/08/22 Additional Source Comments The information contained in this document represents components of the legal health record. It is not the complete legal health record.[facility]
== END 2025-06-22 10:22 | disposition home or self-care (01) ==
LOC: HO.HOS 09:23
PROVIDERS: Visit Provider Orthopaedic Surgery
DX: S62.632B Displaced fracture of distal phalanx of right middle finger, initial encounter for open fracture (principal)
CPT/HCPCS: 99024

== ENCOUNTER → 2025-06-22 09:24 | Outpatient (BNV) | payer OTHER, SELFPAY | PROVIDERS: Visit Provider Radiology Diagnostic Radiology | DX: M79.641 Pain in right hand (principal) | CPT/HCPCS: 73130 ==

== ENCOUNTER 2025-06-22 10:26 | Outpatient (REF) | payer OTHER, BC, SELFPAY ==
--- NOTE | ~2025-06-22 | XR_ITS ---
EXAMINATION: XR HAND 3 OR MORE VIEWS RIGHT HISTORY: M79.641 - Pain in right hand COMPARISON: Comparison is made with the prior examination dated 01/30/2025. FINDINGS: Three views of the right hand are submitted. Osseous mineralization is normal. The patient is again noted to be status post internal fixation of a fracture of the distal phalanx of the middle finger with 2 K wires. The fracture line remains visible. There is an old healed fracture deformity of the 5th metacarpal. The joint spaces are preserved. The soft tissues are unremarkable. XR/XR hand RT min 3V IMPRESSION: Internal fixation of a fracture of the distal phalanx of the middle finger without change. Electronically signed by: Rufus Rodgers MD 06/22/2025 10:02 AM EDT
== END 2025-06-22 10:27 | disposition home or self-care (01) ==
LOC: HO.HOSX 10:26
PROVIDERS: Visit Provider Orthopaedic Surgery
DX: S62.632B Displaced fracture of distal phalanx of right middle finger, initial encounter for open fracture (principal); W23.0XXD Caught, crushed, jammed, or pinched between moving objects, subsequent encounter
CPT/HCPCS: 73130; 99212

== ENCOUNTER 2025-07-19 11:34 | Outpatient (REF) | payer OTHER, SELFPAY | END 2025-07-19 11:35 | disposition home or self-care (01) | LOC: HO.HOSX 11:34 | PROVIDERS: Visit Provider Orthopaedic Surgery | DX: Z13.89 Encounter for screening for other disorder (principal) ==

== ENCOUNTER 2025-07-20 09:14 | Outpatient (AMB) | payer OTHER, SELFPAY ==
--- NOTE | 2025-07-20 09:36 | A.OFFVIS_ITS ---
Vital Signs 07/20/25 09:37 Height 5 ft 9 in Weight 185 lb BMI 27.3 Intake Visit Reasons: PO RT MF CRPP 05/19/25 AR with xray Intake Note: Patsy is a 45 year old right hand dominant female who presents today post- operatively status post Right Middle Finger CRPP, DOS: 05/19/[address] Low. At his last visit his finger splint was discontinued with instructions to wear only for work. He was advised to lift nothing heavier than a cellphone for 4 more weeks. He was further advised to perform gentle ROM and to avoid underwater activities. Out of work note given for 4 more weeks. Patient states he has continue to do daily pin site cleaning and dressing. He is working on bending his finger. 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 He returns S/P right middle finger CRPP, DOS: 05/19/25. On 05/14/2025 while at work he was removing a man hole cover when it fell smashing the tip of his right middle finger. This is a work-related injury. He says he is doing well overall, continues to have some tenderness in his finger. He has been doing daily pin-site care. He says his nail has started to grow in again and he has been trimming it. He would like to discuss RTW status. 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 0.045 K-wire removed today in clinic, which he tolerated well. His fingertip is visibly unstable after removing this K-wire Slight pronation of his middle finger, similar to his contralateral side PIP stiffness improved Fracture site minimally tender, somewhat more painful after pin removal Sensation is intact Cap refill is brisk Radiographs: 3 views of the right hand were taken and viewed by me today in clinic. They show a middle finger distal phalanx fracture with satisfactory fracture alignment & satisfactory position of single K-wire. Still has a significant gap a the fracture site, and I am not seeing a bony union at this point Psych Appearance: grossly normal Affect: normal affect Attitude: cooperative Assessment & Plan Assessment & Plan (1) Open fracture of distal phalanx of right middle finger with nonunion: Code(s): S62.632K - Displaced fracture of distal phalanx of right middle finger, subsequent encounter for fracture with nonunion Category: Medical Plan Assessment & Plan: 1. 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 I educated him about the post-operative course and reviewed his radiographs with him. He is developing an atrophic non-union and his fingertip is unstable We had a long talk about possible treatment options. I discussed the possibility of a partial amputation versus ORIF procedure in the future. I think that with the small size of the distal fragment, that it would likely be difficult to place a screw. I think he would likely do better with partial amputation and the removal of the distal fragment, and excision of the nail bed. In the interest of not wanting to delay treatment very long, he is interested in allowing himself to be set up for surgery in several weeks. He does however want to follow up in 2 weeks to have an appointment to talk about it again. He understands that he can decline at any time. I explained the signs and symptoms of infection He was fitted for a new finger splint, to be worn for the next few weeks. I also discussed the use of a popsicle stick & taping for him if the splint is too uncomfortable. I discussed activity modifications, he is to begin using his hand or lightweight activities, and slowly increase to medium weight activities over the next 4 weeks. 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 He was given a note to continue light duty with a 2lb weight limit with his RUE He will follow up in 2 weeks with X-rays, 3V R hand, OOP. He may cancel this if he is doing well The risks and benefits of operative treatment were discussed with the patient and the patient wishes to proceed with surgery. These risks include, but are not limited to risk of damage to blood vessels, nerves, tendons, infection, recurrence, incomplete relief of preoperative symptoms, persistent pain, possible need for further surgery and the risks associated with regional blocks and anesthesia. The plan is to take the patient to the operating room sometime in the next few weeks for the following procedures: 1. Right middle finger partial amputation & removal of nailbed, under local All of the preoperative paperwork including the consent was reviewed today. All the patient's questions were answered. The patient understands that they will be contacted by our fiberglass machine operator soon to schedule this procedure He denies Diabetes, blood thinners, asthma, heart, lung, kidney issues Please note that greater than 40 minutes was spent with this patient going over the history, evaluating the patient and radiographs, formulating possible treatment options, discussing them with the patient, and documenting the visit. Scribed for Sapna Low MD by Rickey Torre, medical engineer, on 07/20/25 at 9:50 AM, EST. Orders: Orders XR hand LT min 3V 07/19/25 M79.642 - Pain in left hand XR hand RT min 3V Today M79.641 - Pain in right hand Coding Level of Care Code Est Pt Level 4 (73631) Diagnoses Open fracture of distal phalanx of right middle finger with nonunion S62.632S
[2025-07-20 09:37] VITALS: BMI 27.3
== END 2025-07-20 10:35 | disposition home or self-care (01) ==
LOC: HO.HOS 09:15
PROVIDERS: Visit Provider Orthopaedic Surgery
DX: S62.632K Displaced fracture of distal phalanx of right middle finger, subsequent encounter for fracture with nonunion (principal)
CPT/HCPCS: 29130; 99024

== ENCOUNTER → 2025-07-20 09:19 | Outpatient (BNV) | payer OTHER, SELFPAY | PROVIDERS: Visit Provider Radiology Diagnostic Radiology | DX: M79.641 Pain in right hand (principal) | CPT/HCPCS: 73130 ==

== ENCOUNTER 2025-07-20 09:41 | Outpatient (REF) | payer OTHER, SELFPAY ==
--- NOTE | ~2025-07-20 | XR_ITS ---
EXAMINATION: XR HAND 3 OR MORE VIEWS RIGHT HISTORY: M79.641 - Pain in right hand COMPARISON: Comparison is made with the prior examination dated 06/22/2025. FINDINGS: Three views of the right hand are submitted. Osseous mineralization is normal. Again seen is internal fixation of a fracture of the distal phalanx of the middle finger. One of the K wires has been removed since the prior study. The fracture remains evident. Again seen is an old fracture of the 5th metacarpal. The joint spaces are preserved. The soft tissues are unremarkable. XR/XR hand RT min 3V IMPRESSION: Internal fixation of a fracture of the distal phalanx of the middle finger. Interval removal of one of the K wires. Electronically signed by: Rufus Rodgers MD 07/20/2025 09:28 AM EDT
== END 2025-07-20 09:42 | disposition home or self-care (01) ==
LOC: HO.HOSX 09:41
PROVIDERS: Visit Provider Orthopaedic Surgery
DX: S62.632K Displaced fracture of distal phalanx of right middle finger, subsequent encounter for fracture with nonunion (principal); W20.8XXD Other cause of strike by thrown, projected or falling object, subsequent encounter; Y93.89 Activity, other specified; Y92.69 Other specified industrial and construction area as the place of occurrence of the external cause; Y99.0 Civilian activity done for income or pay
CPT/HCPCS: 29130; 73130; 99212